=== PATIENT | female | born 1980 | race Caucasian/White ===

== ENCOUNTER 2020-10-04 10:01 | Outpatient (REF) | payer OTHER, SELFPAY ==
--- NOTE | 2020-10-04 10:19 | XR_ITS ---
EXAMINATION: RIGHT ANKLE AND RIGHT FOOT. CLINICAL INFORMATION: Injury of right ankle. COMPARISON: None TECHNIQUE: 3 views right foot and 2 views right ankle. FINDINGS: RIGHT FOOT: 3 VIEWS. There is mild lateral malleolar soft tissue swelling. No visible acute fracture, dislocation or subluxation seen. RIGHT ANKLE: There is no visible acute fracture, dislocation. The subtalar joints are normal. A small calcaneal spur. The soft tissues are normal. XR/XR ankle RT min 3V IMPRESSION: Small calcaneal heel spur. No visible acute fracture, dislocation or subluxation right ankle. Unremarkable right foot exam.
--- NOTE | 2020-10-04 10:19 | XR_ITS ---
EXAMINATION: RIGHT ANKLE AND RIGHT FOOT. CLINICAL INFORMATION: Injury of right ankle. COMPARISON: None TECHNIQUE: 3 views right foot and 2 views right ankle. FINDINGS: RIGHT FOOT: 3 VIEWS. There is mild lateral malleolar soft tissue swelling. No visible acute fracture, dislocation or subluxation seen. RIGHT ANKLE: There is no visible acute fracture, dislocation. The subtalar joints are normal. A small calcaneal spur. The soft tissues are normal. XR/XR foot RT min 3V IMPRESSION: Small calcaneal heel spur. No visible acute fracture, dislocation or subluxation right ankle. Unremarkable right foot exam.
== END 2020-10-04 10:02 | disposition home or self-care (01) ==
LOC: HO.HMGCX 10:01
PROVIDERS: PCP Internal Medicine; Visit Provider Nurse Practitioner Family
DX: S99.911A Unspecified injury of right ankle, initial encounter (principal)
CPT/HCPCS: 73610; 73630

== ENCOUNTER 2021-11-28 14:40 | Outpatient (REF) | payer OTHER, SELFPAY ==
[2021-12-01 00:02] LABS: HPV mRNA E6/E7 Not Detected (Not Detected)
== END 2021-11-28 14:41 | disposition home or self-care (01) ==
LOC: HO.LAB 14:40
PROVIDERS: Visit Provider Internal Medicine
DX: Z12.4 Encounter for screening for malignant neoplasm of cervix (principal); Z11.51 Encounter for screening for human papillomavirus (HPV)
CPT/HCPCS: 87624; 88142

== ENCOUNTER 2021-12-01 07:43 | Outpatient (REF) | payer OTHER, SELFPAY ==
[2021-12-01 11:32] LABS: Hematocrit 44.2 % (37.0-47.0); Hemoglobin 14.6 g/dl (12.0-16.0); Mean Corpuscular Hemoglobin 30.8 pg (27.0-33.0); Mean Corpuscular Volume 93.2 fL (80.0-98.0); Mean Platelet Volume 9.2 fL (9.4-12.3); Platelet Count 234 X10*3/uL (160-400); Red Blood Count 4.74 X10*6/uL (4.20-5.50); Red Cell Distribution Width 12.4 % (11.0-16.0); White Blood Count 8.2 X10*3/uL (4.8-10.8)
[2021-12-01 12:00] LABS: Alanine Aminotransferase 14 U/L (0-31); Alkaline Phosphatase 100 U/L (39-117); Anion Gap 13 (12-20); Aspartate Amino Transferase 14 U/L (5-31); Bilirubin Total 0.6 mg/dL (0.0-1.0); Blood Urea Nitrogen 13 mg/dL (9-16); Calcium 8.8 mg/dL (8.4-10.2); Carbon Dioxide 25 mmol/L (22-29); Chloride 102 mmol/L (96-108); Cholesterol 231 mg/dL; Estimated Glomerular Filt Rate > 60; Glucose Fasting 138 mg/dL (60-99); HDL Cholesterol 45 mg/dL; Potassium 4.6 mmol/L (3.3-5.1); Sodium 135 mmol/L (135-145); Total Protein 6.6 g/dL (6.5-8.0); Triglycerides 673 mg/dL
[2021-12-01 12:02] LABS: TSH reflex Free T4 3.89 uIU/mL (0.32-4.0)
== END 2021-12-01 07:44 | disposition home or self-care (01) ==
LOC: HO.HMGCLDS 07:43
PROVIDERS: Visit Provider Internal Medicine
DX: Z00.00 Encounter for general adult medical examination without abnormal findings (principal)
CPT/HCPCS: 36415; 80053; 80061; 84443; 85027

== ENCOUNTER 2023-01-02 10:47 | Outpatient (REF) | payer OTHER, SELFPAY ==
[2023-01-02 14:14] LABS: MANUAL DIFF FLAG NO
[2023-01-02 14:23] LABS: Basophils Absolute Auto 0.1 X10*3/uL (0.0-0.2); Basophils Percent Auto 1.2 % (0-2); Eosinophils Absolute Auto 0.1 X10*3/uL (0.0-0.4); Eosinophils Percent Auto 1.9 % (0-4); Hematocrit 44.4 % (37.0-47.0); Hemoglobin 14.4 g/dl (12.0-16.0); Imm Gran Abs Auto 0.04 X10*3/uL (0.00-0.03); Imm Gran Pct Auto 0.6 % (0.0-0.4); Lymphocytes Absolute Auto 1.8 X10*3/uL (1.2-4.9); Lymphocytes Percent Auto 24.9 % (20-40); Mean Corpuscular HGB Conc 32.4 g/dl (31.0-35.0); Mean Corpuscular Hemoglobin 30.4 pg (27.0-33.0); Mean Corpuscular Volume 93.9 fL (80.0-98.0); Mean Platelet Volume 9.1 fL (9.4-12.3); Monocytes Absolute Auto 0.5 X10*3/uL (0.1-1.2); Monocytes Percent Auto 6.6 % (2-11); Neutrophils Absolute Auto 4.7 x10*3/uL (2.0-8.3); Neutrophils Percent Auto 64.8 % (45-73); Platelet Count 235 X10*3/uL (160-400); Red Blood Count 4.73 X10*6/uL (4.20-5.50); Red Cell Distribution Width 12.7 % (11.0-16.0); White Blood Count 7.2 X10*3/uL (4.8-10.8)
[2023-01-02 18:02] LABS: Alanine Aminotransferase 14 U/L (0-31); Albumin Level 4.2 g/dL (3.5-5.0); Alkaline Phosphatase 96 U/L (39-117); Anion Gap 15 (12-20); Aspartate Amino Transferase 17 U/L (5-31); Bilirubin Total 0.7 mg/dL (0.0-1.0); Blood Urea Nitrogen 15 mg/dL (9-16); Calcium 9.2 mg/dL (8.4-10.2); Carbon Dioxide 26 mmol/L (22-29); Chloride 100 mmol/L (96-108); Cholesterol 296 mg/dL; Estimated Glomerular Filt Rate > 60; Glucose Fasting 131 mg/dL (60-99); HDL Cholesterol 63 mg/dL; Iron 115 mcg/dL (30-160); Percent Iron Saturation 29 % (15-50); Potassium 4.4 mmol/L (3.3-5.1); Sodium 137 mmol/L (135-145); Total Iron Binding Capacity 397 mcg/dL (228-428); Total Protein 6.7 g/dL (6.5-8.0); Triglycerides 755 mg/dL; Unsaturated Iron Binding 282 ug/dL
[2023-01-02 18:19] LABS: TSH reflex Free T4 3.01 uIU/mL (0.32-4.0)
[2023-01-04 02:24] LABS: Follicle Stimulating Hormone 6.3 mIU/mL
== END 2023-01-02 10:48 | disposition home or self-care (01) ==
LOC: HO.HMGCLDS 10:47
PROVIDERS: PCP Internal Medicine; Visit Provider Internal Medicine
DX: N92.0 Excessive and frequent menstruation with regular cycle (principal); E78.5 Hyperlipidemia, unspecified
CPT/HCPCS: 36415; 80053; 80061; 83001; 83540; 84443; 85025

== ENCOUNTER 2023-05-08 09:46 | Outpatient (REF) | payer OTHER, SELFPAY ==
[2023-05-08 11:49] LABS: Estimated Average Glucose 111 mg/dL; Hemoglobin A1c % 5.5 %
[2023-05-08 12:35] LABS: Alanine Aminotransferase 17 U/L (0-31); Alkaline Phosphatase 90 U/L (39-117); Anion Gap 17 (12-20); Aspartate Amino Transferase 16 U/L (5-31); Bilirubin Total 0.7 mg/dL (0.0-1.0); Blood Urea Nitrogen 13 mg/dL (9-16); Calcium 8.9 mg/dL (8.4-10.2); Carbon Dioxide 23 mmol/L (22-29); Chloride 102 mmol/L (96-108); Cholesterol 208 mg/dL; Estimated Glomerular Filt Rate > 60; Glucose Fasting 133 mg/dL (60-99); HDL Cholesterol 44 mg/dL; LDL Cholesterol Calculated 90 mg/dl; Potassium 3.5 mmol/L (3.3-5.1); Sodium 138 mmol/L (135-145); Total Protein 6.7 g/dL (6.5-8.0); Triglycerides 370 mg/dL
== END 2023-05-08 09:47 | disposition home or self-care (01) ==
LOC: HO.HMGCLDS 09:46
PROVIDERS: PCP Internal Medicine; Visit Provider Internal Medicine
DX: E78.5 Hyperlipidemia, unspecified (principal); R73.9 Hyperglycemia, unspecified
CPT/HCPCS: 36415; 80053; 80061; 83036

== ENCOUNTER 2023-05-09 12:55 | Outpatient (AMB) | payer OTHER, SELFPAY ==
[2023-05-09 13:32] VITALS: BP 122/78; PULSE 99; O2SAT 98
--- NOTE | 2023-05-09 13:32 | MHC.PC.OV ---
Vital Signs 05/09/23 13:32 Weight 190 lb 4 oz BP 122/78 Blood Pressure Location Rt brachial Position Sitting Pulse 99 Pulse Source Pulse Oximeter Pulse Oximetry (%) 98 Oxygen Delivery Method Room Air Intake Visit Reasons: phy and pap Allergies No Known Allergies Allergy (Verified 05/09/23 13:33) Medication List - Last Reconciled 05/09/23 by Isabella Harper MD bupropion HCl 300 mg PO QAM citalopram 20 mg PO DAILY fenofibrate nanocrystallized 145 mg PO DAILY Tobacco use date assessed: 05/09/23 Dental Screening Dental Screen Date: 05/09/23 Did you have a dental visit in the last 12 months?: Yes Did you have a dental problem in the last 6 months where you did not have access to dental care?: No Was dental information given to patient?: No HPI phy and pap HPI Details Pt presents for PE. PFSH Medical History Annual physical exam Anxiety Hyperlipidemia Surgical History Hx of colonoscopy Social History Housing: House Patient Tobacco Use Status: Current someday Tobacco user e-Cigarette/Vaping Use: Never Used Current occupational status: employed Cognitive needs: No Hearing needs: No Vision needs: No Questionnaire Thrive Questionnaire Date Thrive assessed: 11/28/21 AUDIT C Alcohol Use Questionnaire (AUDIT-C) 1. How often do you have a drink containing alcohol?: 2-4 times a month 2. How many drinks containing alcohol do you have on a typical day when you are drinking?: 1 or 2 3. How often do you have six or more drinks on one occasion?: Never Total Score: 2 Score Reviewed/Action Taken: Yes BRITT-7 AMB Questionnaire BRITT-7 Date BRITT - 7 assessed: 11/28/21 Source: Developed by Drs. Ritchie Looney, Heavenly Kirkpatrick, Jas Quintana and colleagues, with an educational bryanna from [employer]. Review of Systems Const All systems reviewed & are unremarkable except as noted in HPI and below Reports no additional complaints Eyes Reports no additional complaints ENT Reports no additional complaints Card Reports no additional complaints Resp Reports no additional complaints GI Reports no additional complaints Reports no additional complaints Musc Reports no additional complaints Neuro Reports no additional complaints Physical exam (Primary Care) Vital Signs: Last Vital Signs Pulse 99 05/09/23 13:32 BP 122/78 05/09/23 13:32 Pulse Ox 98 05/09/23 13:32 Oxygen Delivery Method Room Air 05/09/23 13:32 Tobacco/Smoking Status: Tobacco use Status Tobacco use date assessed 05/09/23 05/09/23 13:33 Patient Tobacco Use Status Current someday Tobacco 05/09/23 13:33 e-Cigarette/Vaping Use Never Used 05/09/23 13:33 Thrive Assessment: Date of Thrive Assessment Date Thrive assessed 11/28/21 05/09/23 13:33 Const General: no acute distress HENMT Head: Yes normal to inspection Ears: hearing grossly normal bilaterally Face and sinus: Yes normal facial exam Mouth: Normal oral and palatal mucosa present Throat: Yes posterior oropharynx normal Eyes General: appearance normal, both eyes and all related structures EOM: EOMs intact bilaterally Neck Neck: Yes no lymphadenopathy and Yes supple Resp Effort & Inspection: normal respiratory effort Auscultation: clear to auscultation bilaterally Cardio Rhythm: regular rhythm Heart sounds: S1 normal heart sound present and S2 normal heart sound present GI Inspection: Yes normal to inspection Palpation (GI): Soft to palpation Percussion: Yes normal to percussion Auscultation: normal bowel sounds External Female Exam: normal external appearance Speculum Exam - Vagina: normal appearance of the vagina Speculum Exam - Cervix: normal appearance of the cervix Bimanual exam- vagina & uterus: normal bimanual exam Assessment and Plan Assessment & Plan (1) Hyperlipidemia: Code(s): E78.5 - Hyperlipidemia, unspecified Plan: cont Fenofibrate, low carb/low saturated fats, f/u in 6 mths with fasting labs before (2) Annual physical exam: Code(s): Z00.00 - Encounter for general adult medical examination without abnormal findings Plan: well balanced diet, egular exercise discussed, schedule mammogram, pap done today (3) Hyperglycemia: Code(s): R73.9 - Hyperglycemia, unspecified Plan: A1C 5.5, ADA diet, exercise, weight loss discussed, f/u 6 mths Orders: Orders MM screening mammo BI Today Z12.31 - Encounter for screening mammogram for malignant neoplasm of breast [facility] [place]. Panel Fast 6 Months E78.5 - Hyperlipidemia, unspecified, R73.9 - Hyperglycemia, unspecified, Z00.00 - Encounter for general adult medical examination without abnormal findings Hemoglobin A1c 6 Months E78.5 - Hyperlipidemia, unspecified, R73.9 - Hyperglycemia, unspecified, Z00.00 - Encounter for general adult medical examination without abnormal findings Lipid Panel 6 Months E78.5 - Hyperlipidemia, unspecified, R73.9 - Hyperglycemia, unspecified, Z00.00 - Encounter for general adult medical examination without abnormal findings TSH reflex Free T4 6 Months E78.5 - Hyperlipidemia, unspecified, R73.9 - Hyperglycemia, unspecified, Z00.00 - Encounter for general adult medical examination without abnormal findings Pap Smear Today Z00.00 - Encounter for general adult medical examination without abnormal findings Coding Level of Care Code Est Pt Prev Care 40-64y(57158) Diagnoses Hyperlipidemia E78.5 Annual physical exam Z00.00 Hyperglycemia R73.9
== END 2023-05-09 14:37 | disposition home or self-care (01) ==
PROVIDERS: Visit Provider Internal Medicine
DX: E78.5 Hyperlipidemia, unspecified (principal); Z00.00 Encounter for general adult medical examination without abnormal findings; R73.9 Hyperglycemia, unspecified
CPT/HCPCS: 99396

== ENCOUNTER 2023-05-09 15:57 | Outpatient (REF) | payer OTHER, SELFPAY ==
[2023-05-15 06:34] LABS: HPV mRNA E6/E7 Not Detected (Not Detected)
== END 2023-05-09 15:58 | disposition home or self-care (01) ==
LOC: HO.LNP 15:57
PROVIDERS: Visit Provider Internal Medicine
DX: Z12.4 Encounter for screening for malignant neoplasm of cervix (principal)
CPT/HCPCS: 87624; 88142

== ENCOUNTER 2023-08-20 16:09 | Outpatient (REF) | payer OTHER, SELFPAY ==
--- NOTE | ~2023-08-20 | MM_ITS ---
EXAMINATION: MM SCREENING DIGITAL BREAST TOMOSYNTHESIS, BILATERAL CLINICAL INFORMATION: Screening. Asymptomatic. COMPARISON: Mammography: This study is compared with the prior mammogram dating back to 2013. There are no interval examinations. TECHNIQUE: Digital breast tomosynthesis is performed in both the craniocaudal and mediolateral oblique views along with computer-aided detection (CAD). Synthesized 2D images are generated from the tomosynthesis. FINDINGS: The breasts are heterogeneously dense, which may obscure small masses (ACR BI-RADS breast composition Category c). There are no significant masses, abnormal calcifications, or other abnormalities. MM/MM tomosynthesis screening BI IMPRESSION: No mammographic evidence of malignancy. ASSESSMENT: BI-RADS BI-RADS 1 - Negative RECOMMENDATION: Routine annual mammography screening. 1 year F/U This examination should not preclude the clinical evaluation of a suspicious palpable abnormality. This patient's information was entered into a reminder system with a target due date for their next mammogram.
== END 2023-08-20 16:10 | disposition home or self-care (01) ==
LOC: HO.MAMMO 16:09
PROVIDERS: PCP Internal Medicine; Visit Provider Internal Medicine
DX: Z12.31 Encounter for screening mammogram for malignant neoplasm of breast (principal)
CPT/HCPCS: 77063; 77067

== ENCOUNTER → 2023-08-20 16:15 | Outpatient (BNV) | payer OTHER, SELFPAY | PROVIDERS: PCP Internal Medicine; Visit Provider Radiology Diagnostic Radiology | DX: Z12.31 Encounter for screening mammogram for malignant neoplasm of breast (principal) | CPT/HCPCS: 77063; 77067 ==

== ENCOUNTER 2023-11-08 13:48 | Outpatient (REF) | payer OTHER, SELFPAY ==
[2023-11-08 16:55] LABS: Estimated Average Glucose 103 mg/dL; Hemoglobin A1c % 5.2 % (<6.0)
[2023-11-08 17:08] LABS: Alanine Aminotransferase 27 U/L (0-31); Albumin Level 4.4 g/dL (3.5-5.0); Alkaline Phosphatase 96 U/L (39-117); Anion Gap 11 (12-20); Aspartate Amino Transferase 22 U/L (5-31); Bilirubin Total 0.5 mg/dL (0.0-1.0); Blood Urea Nitrogen 9 mg/dL (9-16); Calcium 9.8 mg/dL (8.4-10.2); Carbon Dioxide 30 mmol/L (22-29); Chloride 101 mmol/L (96-108); Cholesterol 190 mg/dL (<200); Estimated Glomerular Filt Rate > 60; Glucose Fasting 95 mg/dL (60-99); HDL Cholesterol 42 mg/dL (>40); Potassium 3.8 mmol/L (3.3-5.1); Sodium 138 mmol/L (135-145); Total Protein 7.2 g/dL (6.5-8.0); Triglycerides 438 mg/dL (<150)
[2023-11-08 17:17] LABS: TSH reflex Free T4 1.61 uIU/mL (0.32-4.0)
== END 2023-11-08 13:49 | disposition home or self-care (01) ==
LOC: HO.HMGCLDS 13:48
PROVIDERS: PCP Internal Medicine; Visit Provider Internal Medicine
DX: Z00.00 Encounter for general adult medical examination without abnormal findings (principal); R73.9 Hyperglycemia, unspecified; E78.5 Hyperlipidemia, unspecified
CPT/HCPCS: 36415; 80053; 80061; 83036; 84443

== ENCOUNTER 2023-11-08 14:00 | Outpatient (AMB) | payer OTHER, SELFPAY ==
--- NOTE | 2023-11-08 14:09 | MHC.PC.OV ---
Vital Signs 11/08/23 14:12 Height 5 ft 7 in Weight 183 lb BMI 28.7 BP 120/74 Blood Pressure Location Lt brachial Position Sitting Pulse 74 Pulse Source Pulse Oximeter Pulse Oximetry (%) 97 Oxygen Delivery Method Room Air Intake Visit Reasons: 6 month f/u, hyperlipid Allergies No Known Allergies Allergy (Verified 11/08/23 14:18) Medication List - Last Reconciled 11/08/23 by Isabella Harper MD citalopram 20 mg PO DAILY fenofibrate nanocrystallized 145 mg PO DAILY Tobacco use date assessed: 11/08/23 Dental Screening Dental Screen Date: 11/08/23 Did you have a dental visit in the last 12 months?: Yes Did you have a dental problem in the last 6 months where you did not have access to dental care?: No Was dental information given to patient?: Patient has dentist HPI 6 month f/u, hyperlipid HPI Details Pt presents for anxiety, hyperlipid. Patient has been following with a counselor and taking citalopram for chronic anxiety. She has been under stress related to her 20-year-old son struggling with addiction to heroin. Patient needs to increase her intermittent FMLA to 3 episodes per month 1 day per episode for the next 6 months. [facility] Medical History Annual physical exam Anxiety Hyperlipidemia Surgical History Hx of colonoscopy Social History Housing: House Patient Tobacco Use Status: Current someday Tobacco user Cigarettes Per Day: 3 e-Cigarette/Vaping Use: Never Used Current occupational status: employed Cognitive needs: No Hearing needs: No Vision needs: No Questionnaire PHQ-9 Over the last 2 weeks, how often have you been bothered by any of the following problems? 1. Little interest or pleasure in doing things: not at all 2. Feeling down, depressed, or hopeless: not at all 3. Trouble falling or staying asleep, or sleeping too much: more than half the days 4. Feeling tired or having little energy: not at all 5. Poor appetite or overeating: not at all 6. Feeling bad about yourself - or that you are a failure or have let yourself or your family down: not at all 7. Trouble concentrating on things, such as reading the newspaper or watching television: not at all 8. Moving or speaking so slowly that other people could have noticed. Or the opposite - being so fidgety or restless that you have been moving around a lot more than usual: nearly every day 9. Thoughts that you would be better off or of hurting yourself in some way: not at all Total score: 5 Depression Screening Interpretation: Negative Depression Screening Done: Yes Source: Developed by Drs. Ritchie Looney, Heavenly Kirkpatrick, Jsa Quintana and colleagues, with an educational bryanna from [employer]. Thrive Questionnaire Date Thrive assessed: 11/08/23 I am a: Patient What is your living situation today?: I have a steady place to live Within the past 12 months, did the food you bought not last and you didn't have the money to get more?: Never true Within the past 12 months, did you worry whether your food would run out before you got money to buy more?: Never true Do you have trouble paying for medicines?: No Do you have trouble getting transportation to medical appointments?: No Do you have trouble paying your heating and electricity bill?: No Do you have trouble taking care of your child, family member or friend?: No Do you have trouble with day-to-day activities such as bathing, preparing meals, shopping, managing finances, etc.?: No Are you currently unemployed and looking for a job?: No Are you interested in more education?: No Please select the resources that you would like help with: None THRIVE Score: 0 AUDIT C Alcohol Use Questionnaire (AUDIT-C) 1. How often do you have a drink containing alcohol?: 2-4 times a month 2. How many drinks containing alcohol do you have on a typical day when you are drinking?: 1 or 2 3. How often do you have six or more drinks on one occasion?: Never Total Score: 2 BRITT-7 AMB Questionnaire BRITT-7 Date BRITT - 7 assessed: 11/08/23 Feeling nervous, anxious, or on edge: 1 = Several days Not being able to stop or control worryin = Several days Worrying too much about different things: 1 = Several days Trouble relaxin = Several days Being so restless that it is hard to sit still: 3 = Nearly every day Becoming easily annoyed or irritable: 3 = Nearly every day Feeling afraid as if something awful might happen: 0 = Not at all Total BRITT-7 score (0-4 normal; 5-9 mild; 10-14 moderate; 15-21 severe): 10 Source: Developed by Drs. Ritchie Looney, Heavenly Kirkpatrick, Jas Quintana and colleagues, with an educational bryanna from [employer]. Review of Systems Const All systems reviewed & are unremarkable except as noted in HPI and below Reports no additional complaints Eyes Reports no additional complaints ENT Reports no additional complaints Card Reports no additional complaints Resp Reports no additional complaints GI Reports no additional complaints Physical exam (Primary Care) Vital Signs: Last Vital Signs Pulse 74 11/08/23 14:12 BP 120/74 11/08/23 14:12 Pulse Ox 97 11/08/23 14:12 Oxygen Delivery Method Room Air 11/08/23 14:12 BMI result Body Mass Index 28.7 Tobacco/Smoking Status: Tobacco use Status Tobacco use date assessed 11/08/23 11/08/23 14:22 Patient Tobacco Use Status Current someday Tobacco 11/08/23 14:10 e-Cigarette/Vaping Use Never Used 11/08/23 14:10 PHQ-9: PHQ-9 Score PHQ-9: Total score 5 11/08/23 14:24 Depression Screening Interpretation: Negative Thrive Assessment: Date of Thrive Assessment Date Thrive assessed 11/08/23 11/08/23 14:24 Const General: no acute distress HENMT Throat: Yes posterior oropharynx normal Eyes General: appearance normal, both eyes and all related structures Neck Neck: Yes supple Resp Effort & Inspection: normal respiratory effort Auscultation: clear to auscultation bilaterally Cardio Rhythm: regular rhythm Heart sounds: S1 normal heart sound present and S2 normal heart sound present Assessment and Plan Assessment & Plan (1) Hyperglycemia: Code(s): R73.9 - Hyperglycemia, unspecified Plan: Continue ADA diet regular exercise follow-up in 6 months for physical with a fasting labs before (2) Menorrhagia: Code(s): N92.0 - Excessive and frequent menstruation with regular cycle (3) Hyperlipidemia: Code(s): E78.5 - Hyperlipidemia, unspecified Plan: Continue low-cholesterol diet and fenofibrate (4) Annual physical exam: Code(s): Z00.00 - Encounter for general adult medical examination without abnormal findings (5) Anxiety: Code(s): F41.9 - Anxiety disorder, unspecified Plan: Continue citalopram and counseling Orders: Orders Comprehensive [place]. Panel Fast 6 Months E78.5 - Hyperlipidemia, unspecified, N92.0 - Excessive and frequent menstruation with regular cycle, R73.9 - Hyperglycemia, unspecified, Z00.00 - Encounter for general adult medical examination without abnormal findings Lipid Panel 6 Months E78.5 - Hyperlipidemia, unspecified, N92.0 - Excessive and frequent menstruation with regular cycle, R73.9 - Hyperglycemia, unspecified, Z00.00 - Encounter for general adult medical examination without abnormal findings Complete Blood Count Auto Diff 6 Months E78.5 - Hyperlipidemia, unspecified, N92.0 - Excessive and frequent menstruation with regular cycle, R73.9 - Hyperglycemia, unspecified, Z00.00 - Encounter for general adult medical examination without abnormal findings TSH reflex Free T4 6 Months E78.5 - Hyperlipidemia, unspecified, N92.0 - Excessive and frequent menstruation with regular cycle, R73.9 - Hyperglycemia, unspecified, Z00.00 - Encounter for general adult medical examination without abnormal findings Hemoglobin A1c 6 Months E78.5 - Hyperlipidemia, unspecified, N92.0 - Excessive and frequent menstruation with regular cycle, R73.9 - Hyperglycemia, unspecified, Z00.00 - Encounter for general adult medical examination without abnormal findings Coding Level of Care Code Est Pt Level 3 (31348) Diagnoses Hyperglycemia R73.9 Menorrhagia N92.0 Hyperlipidemia E78.5 Annual physical exam Z00.00 Anxiety F41.9
[2023-11-08 14:12] VITALS: BP 120/74; PULSE 74; O2SAT 97; BMI 28.7
== END 2023-11-08 15:10 | disposition home or self-care (01) ==
PROVIDERS: PCP Internal Medicine; Visit Provider Internal Medicine
DX: R73.9 Hyperglycemia, unspecified (principal); N92.0 Excessive and frequent menstruation with regular cycle; E78.5 Hyperlipidemia, unspecified; Z00.00 Encounter for general adult medical examination without abnormal findings; F41.9 Anxiety disorder, unspecified
CPT/HCPCS: 99213

== ENCOUNTER 2023-12-14 13:09 | Outpatient (REF) | payer OTHER, SELFPAY ==
[2023-12-14 17:20] LABS: Cholesterol 180 mg/dL (<200); HDL Cholesterol 46 mg/dL (>40); LDL Cholesterol Calculated 95 mg/dL (<100); Triglycerides 199 mg/dL (<150)
== END 2023-12-14 13:10 | disposition home or self-care (01) ==
LOC: HO.HMGCLDS 13:09
PROVIDERS: PCP Internal Medicine; Visit Provider Internal Medicine
DX: E78.5 Hyperlipidemia, unspecified (principal)
CPT/HCPCS: 36415; 80061

== ENCOUNTER 2024-05-08 10:27 | Outpatient (REF) | payer OTHER, SELFPAY ==
[2024-05-08 12:58] LABS: MANUAL DIFF FLAG NO
[2024-05-08 13:03] LABS: Basophils Absolute Auto 0.1 X10*3/uL (0.0-0.2); Eosinophils Absolute Auto 0.2 X10*3/uL (0.0-0.4); Eosinophils Percent Auto 1.9 % (0-4); Hematocrit 44.8 % (37.0-47.0); Hemoglobin 15.2 g/dl (12.0-16.0); Imm Gran Abs Auto 0.03 X10*3/uL (0.00-0.03); Imm Gran Pct Auto 0.4 % (0.0-0.4); Lymphocytes Absolute Auto 1.8 X10*3/uL (1.2-4.9); Lymphocytes Percent Auto 22.7 % (20-40); Mean Corpuscular HGB Conc 33.9 g/dl (31.0-35.0); Mean Corpuscular Volume 91.4 fL (80.0-98.0); Mean Platelet Volume 9.3 fL (9.4-12.3); Monocytes Absolute Auto 0.5 X10*3/uL (0.1-1.2); Monocytes Percent Auto 6.7 % (2-11); Neutrophils Absolute Auto 5.2 x10*3/uL (2.0-8.3); Neutrophils Percent Auto 67.3 % (45-73); Platelet Count 266 X10*3/uL (160-400); Red Cell Distribution Width 12.1 % (11.0-16.0); White Blood Count 7.8 X10*3/uL (4.8-10.8)
[2024-05-08 13:17] LABS: Estimated Average Glucose 100 mg/dL; Hemoglobin A1c % 5.1 % (<6.0)
[2024-05-08 13:36] LABS: Alanine Aminotransferase 20 U/L (0-31); Albumin Level 4.3 g/dL (3.5-5.0); Alkaline Phosphatase 85 U/L (39-117); Anion Gap 11 (12-20); Aspartate Amino Transferase 22 U/L (5-31); Bilirubin Total 0.9 mg/dL (0.0-1.0); Blood Urea Nitrogen 11 mg/dL (9-16); Calcium 9.1 mg/dL (8.4-10.2); Carbon Dioxide 26 mmol/L (22-29); Chloride 104 mmol/L (96-108); Cholesterol 190 mg/dL (<200); Estimated Glomerular Filt Rate > 60; Glucose Fasting 104 mg/dL (60-99); HDL Cholesterol 50 mg/dL (>40); LDL Cholesterol Calculated 88 mg/dL (<100); Potassium 3.9 mmol/L (3.3-5.1); Sodium 137 mmol/L (135-145); Total Protein 6.9 g/dL (6.5-8.0); Triglycerides 262 mg/dL (<150)
[2024-05-08 13:52] LABS: TSH reflex Free T4 2.82 uIU/mL (0.32-4.0)
== END 2024-05-08 10:28 | disposition home or self-care (01) ==
LOC: HO.HMGCLDS 10:27
PROVIDERS: PCP Internal Medicine; Visit Provider Internal Medicine
DX: Z00.00 Encounter for general adult medical examination without abnormal findings (principal); E78.5 Hyperlipidemia, unspecified; N92.0 Excessive and frequent menstruation with regular cycle; R73.9 Hyperglycemia, unspecified
CPT/HCPCS: 36415; 80053; 80061; 83036; 84443; 85025

== ENCOUNTER 2024-05-14 12:50 | Outpatient (AMB) | payer OTHER, SELFPAY ==
[2024-05-14 13:33] VITALS: BP 118/74; PULSE 97; O2SAT 99; BMI 25.2
--- NOTE | 2024-05-14 13:33 | A.OFFPC_ITS ---
Vital Signs 05/14/24 13:33 Height 5 ft 7 in Weight 161 lb BMI 25.2 BP 118/74 Blood Pressure Location Lt brachial Position Sitting Pulse 97 Pulse Source Pulse Oximeter Pulse Oximetry (%) 99 Oxygen Delivery Method Room Air Intake Visit Reasons: PE Intake Note: Pt is here today for PE. Allergies No Known Allergies Allergy (Verified 05/14/24 13:33) Medication List - Last Reconciled 05/14/24 by Isabella Harper MD citalopram 40 mg PO DAILY fenofibrate nanocrystallized 145 mg PO DAILY Tobacco use date assessed: 05/14/24 Dental Screening Dental Screen Date: 05/14/24 Did you have a dental visit in the last 12 months?: Yes Did you have a dental problem in the last 6 months where you did not have access to dental care?: No Was dental information given to patient?: Patient has dentist HPI PE HPI Details Pt presents for PE. PFSH Medical History Hyperlipidemia Anxiety Annual physical exam Surgical History Hx of colonoscopy Social History Housing: House Patient Tobacco Use Status: Current someday Tobacco user Cigarettes Per Day: 3 e-Cigarette/Vaping Use: Never Used service: No Current occupational status: employed Cognitive needs: No Hearing needs: No Vision needs: No Questionnaire PHQ-9 Over the last 2 weeks, how often have you been bothered by any of the following problems? 1. Little interest or pleasure in doing things: several days 2. Feeling down, depressed, or hopeless: several days 3. Trouble falling or staying asleep, or sleeping too much: several days 4. Feeling tired or having little energy: several days 5. Poor appetite or overeating: not at all 6. Feeling bad about yourself - or that you are a failure or have let yourself or your family down: several days 7. Trouble concentrating on things, such as reading the newspaper or watching television: several days 8. Moving or speaking so slowly that other people could have noticed. Or the op posite - being so fidgety or restless that you have been moving around a lot more than usual: several days 9. Thoughts that you would be better off or of hurting yourself in some way: not at all Total score: 7 Depression Screening Interpretation: Negative Depression Screening Done: Yes Source: Developed by Drs. Ritchie Looney, Heavenly Kirkpatrick, Jas Quintana and colleagues, with an educational bryanna from [employer]. Thrive Questionnaire Date Thrive assessed: 05/14/24 I am a: Patient What is your living situation today?: I have a steady place to live Within the past 12 months, did the food you bought not last and you didn't have the money to get more?: Never true Within the past 12 months, did you worry whether your food would run out before you got money to buy more?: Never true Do you have trouble paying for medicines?: No Do you have trouble getting transportation to medical appointments?: No Do you have trouble paying your heating and electricity bill?: No Do you have trouble taking care of your child, family member or friend?: No Do you have trouble with day-to-day activities such as bathing, preparing meals, shopping, managing finances, etc.?: I choose not to answer this question Are you currently unemployed and looking for a job?: No Are you interested in more education?: No Please select the resources that you would like help with: Housing/Senior Care Currently or been in a relationship where the following occur: No concerns reported THRIVE Score: 0 AUDIT C Alcohol Use Questionnaire (AUDIT-C) 1. How often do you have a drink containing alcohol?: 2-4 times a month 2. How many drinks containing alcohol do you have on a typical day when you are drinking?: 1 or 2 3. How often do you have six or more drinks on one occasion?: Never Total Score: 2 BRITT-7 AMB Questionnaire BRITT-7 Date BRITT - 7 assessed: 05/14/24 Feeling nervous, anxious, or on edge: 1 = Several days Not being able to stop or control worryin = Several days Worrying too much about different things: 1 = Several days Trouble relaxin = Several days Being so restless that it is hard to sit still: 0 = Not at all Becoming easily annoyed or irritable: 1 = Several days Feeling afraid as if something awful might happen: 0 = Not at all Total BRITT-7 score (0-4 normal; 5-9 mild; 10-14 moderate; 15-21 severe): 5 Source: Developed by Drs. Ritchie Looney, Heavenly Kirkpatrick, Jas Quintana and colleagues, with an educational bryanna from [employer]. Review of Systems Const All systems reviewed & are unremarkable except as noted in HPI and below Eyes Reports no additional complaints Card Reports no additional complaints Resp Reports no additional complaints GI Reports no additional complaints Reports no additional complaints Physical exam (Primary Care) Vital Signs: Last Vital Signs Pulse 97 05/14/24 13:33 BP 118/74 05/14/24 13:33 Pulse Ox 99 05/14/24 13:33 Oxygen Delivery Method Room Air 05/14/24 13:33 BMI result Body Mass Index 25.2 Tobacco/Smoking Status: Tobacco use Status Tobacco use date assessed 05/14/24 05/14/24 13:34 Patient Tobacco Use Status Current someday Tobacco 05/14/24 13:34 e-Cigarette/Vaping Use Never Used 05/14/24 13:34 PHQ-9: PHQ-9 Score PHQ-9: Total score 7 05/14/24 13:56 Depression Screening Interpretation: Negative Thrive Assessment: Date of Thrive Assessment Date Thrive assessed 05/14/24 05/14/24 13:40 Currently or been in a relationship where the following occur: No concerns reported Const General: no acute distress HENMT Head: Yes normal to inspection Ears: hearing grossly normal bilaterally Face and sinus: Yes normal facial exam Throat: Yes posterior oropharynx normal Eyes General: appearance normal, both eyes and all related structures Neck Neck: Yes supple Resp Effort & Inspection: normal respiratory effort Auscultation: clear to auscultation bilaterally Cardio Rhythm: regular rhythm Heart sounds: S1 normal heart sound present and S2 normal heart sound present GI Inspection: Yes normal to inspection Palpation (GI): Soft to palpation Percussion: Yes normal to percussion Auscultation: normal bowel sounds Assessment and Plan Assessment & Plan (1) Annual physical exam: Code(s): Z00.00 - Encounter for general adult medical examination without abnormal findings Plan: Well-balanced diet regular physical activity discussed with the patient she is up-to-date with the mammogram and had negative colonoscopy in 2017. Patient requests a referral to talent development director for IUD. Continue citalopram for chronic anxiety and fenofibrate for hypertriglyceridemia, return in 1 year with a fasting labs before (2) Menorrhagia: Code(s): N92.0 - Excessive and frequent menstruation with regular cycle Plan: Referred to talent development director Orders: Referrals TRAFFIC CONTROL SUPERVISOR Referral N92.0 - Excessive and frequent menstruation with regular cycle, Z00.00 - Encounter for general adult medical examination without abnormal findings Coding Level of Care Code Est Pt Prev Care 40-64y(83399) Diagnoses Annual physical exam Z00.00 Menorrhagia N92.0
== END 2024-05-14 14:37 | disposition home or self-care (01) ==
PROVIDERS: PCP Internal Medicine; Visit Provider Internal Medicine
DX: Z00.00 Encounter for general adult medical examination without abnormal findings (principal); N92.0 Excessive and frequent menstruation with regular cycle
CPT/HCPCS: 99396

== ENCOUNTER 2024-11-12 12:41 | Outpatient (REF) | payer OTHER, SELFPAY ==
[2024-11-26 13:05] LABS: HPV Genotype 16 Negative (Negative); HPV Genotype 18 Negative (Negative); HPV High Risk Negative (Negative)
== END 2024-11-12 12:42 | disposition home or self-care (01) ==
LOC: HO.LNP 12:41
PROVIDERS: PCP Internal Medicine; Visit Provider Internal Medicine
DX: Z12.4 Encounter for screening for malignant neoplasm of cervix (principal); Z11.51 Encounter for screening for human papillomavirus (HPV); N92.0 Excessive and frequent menstruation with regular cycle; N92.6 Irregular menstruation, unspecified
CPT/HCPCS: 87626; 88175; 96127

== ENCOUNTER 2024-12-08 10:58 | Outpatient (REF) | payer OTHER, SELFPAY ==
--- NOTE | ~2024-12-08 | MM_ITS ---
EXAMINATION: MM SCREENING DIGITAL BREAST TOMOSYNTHESIS, BILATERAL CLINICAL INFORMATION: Screening. Asymptomatic. COMPARISON: Mammography: Comparison is made with available priors TECHNIQUE: Digital breast mammography with tomosynthesis is performed in both the craniocaudal and mediolateral oblique views along with computer-aided detection (CAD). FINDINGS: The breasts are heterogeneously dense, which may obscure small masses (ACR BI-RADS breast composition Category c). There are no significant masses, abnormal calcifications, or other abnormalities. MM/MM tomosynthesis screening BI IMPRESSION: No mammographic evidence of malignancy. ASSESSMENT: BI-RADS BI-RADS 1 - Negative RECOMMENDATION: Routine annual mammography screening. 1 year F/U This examination should not preclude the clinical evaluation of a suspicious palpable abnormality. This patient's information was entered into a reminder system with a target due date for their next mammogram. Electronically signed by: Brigette Tilley DO 12/09/2024 05:18 PM [facility]
== END 2024-12-08 10:59 | disposition home or self-care (01) ==
LOC: HO.MAMMO 10:58
PROVIDERS: PCP Internal Medicine; Visit Provider Internal Medicine
DX: Z12.31 Encounter for screening mammogram for malignant neoplasm of breast (principal)
CPT/HCPCS: 77063; 77067

== ENCOUNTER 2024-12-08 14:24 | Outpatient (REF) | payer OTHER, SELFPAY ==
--- NOTE | ~2024-12-08 | US_ITS ---
CLINICAL HISTORY: N92.0 - Excessive and frequent menstruation with regular cycle US pelvis transabdominal and transvaginal Comparison: None Findings: Transabdominal scanning performed for overall anatomy. Transvaginal scanning performed for additional detail. Retroverted uterus is 9.5 cm length. Normal myometrium. Cervical nabothian cysts are incidentally noted. Endometrium 7 mm thickness. No lesions. Right ovary 3.5 x 2.3 x 1.6 cm. Left ovary 4.2 x 2.8 x 2.0 cm. Normal color Doppler of both ovaries. No free fluid. IMPRESSION: 1. There are cervical nabothian cysts. Otherwise unremarkable examination. This document has been electronically signed by: Clare Humphries MD on 12/09/2024 15:18:34
== END 2024-12-08 14:25 | disposition home or self-care (01) ==
LOC: HO.HMGCX 14:24
PROVIDERS: PCP Internal Medicine; Visit Provider Internal Medicine
DX: N92.0 Excessive and frequent menstruation with regular cycle (principal)
CPT/HCPCS: 76830; 76856

== ENCOUNTER → 2024-12-08 14:41 | Outpatient (BNV) | payer OTHER, SELFPAY | PROVIDERS: PCP Internal Medicine; Visit Provider Radiology Diagnostic Radiology | DX: Z12.31 Encounter for screening mammogram for malignant neoplasm of breast (principal); N92.0 Excessive and frequent menstruation with regular cycle | CPT/HCPCS: 76830; 76856; 77063; 77067 ==